=== PATIENT | male | born 1965 | race Caucasian/White ===

== ENCOUNTER 2017-05-18 16:22 | Inpatient (IN) | payer OTHER, MEDICAID ==
[~2017-05-18] VITALS: Ht 188 cm; Wt 125.2 kg
[2017-05-18 16:30] VITALS: Ht 188 cm; Wt 125.2 kg
[2017-05-18 17:13] LABS: BASOPHIL % 0.4 % (0-2); PLATELET COUNT 287 x10^3mcL (130-400); RED CELL DISTRIBUTION WIDTH 13.7 % (11.5-14.5)
[2017-05-18 17:17] LABS: CALCIUM 8.7 mg/dL (8.5-10.1); CARBON DIOXIDE 31.9 mmol/L (21-32); CHLORIDE SERUM 102 mmol/L (98-107); CREATININE SERUM 0.9 mg/dL (0.7-1.3); GFR1 > 60 mL/min; GLUCOSE SERUM 91 mg/dL (74-106); POTASSIUM SERUM 4.1 mmol/L (3.5-5.1); SODIUM SERUM 140 mmol/L (136-145)
[2017-05-18 17:34] LABS: ALBUMIN 3.7 g/dL (3.4-5.0); ALKALINE PHOSPHATASE 70 U/L (46-116); ALT/SGPT 23 U/L (16-63); AST/SGOT 14 U/L (15-37); BILIRUBIN TOTAL 0.33 mg/dL (0.20-1.00); TOTAL PROTEIN, SERUM 7.8 g/dL (6.4-8.2)
[2017-05-18 18:07] LABS: AMPHETAMINE QUAL UR NONE DETECTED (NEG <=1000)
[2017-05-18] MEDS ORDERED: GOOD SENSE OMEP20 MG PO (18:14)
[2017-05-18] MEDS ORDERED: BENZTROPINE MESY1 MG PO (18:14)
[2017-05-18] MEDS ORDERED: ZESTRIL5 MG PO (18:14)
[2017-05-18] MEDS ORDERED: DIVALPROEX SOD500 M3 PO (18:15)
[2017-05-18] MEDS ORDERED: HALDOL DECA100 MG/ML INJ (18:15)
[2017-05-18] MEDS ORDERED: OLANZAPINE5 M2 PO (18:15)
[2017-05-18] MEDS ORDERED: MIRTAZAPINE15 M2 PO (18:15)
[2017-05-18 19:13] VITALS: BP 149/97
[2017-05-18 19:25] LABS: PHOSPHOROUS 3.8 mg/dL (2.5-4.9)
[2017-05-18 19:26] LABS: CHOLESTEROL/HDL RATIO 6.3
[2017-05-18 19:34] LABS: T3 TOTAL 1.1 ng/mL
[2017-05-18 19:57] LABS: FREE T4 0.75 ng/dL (0.76-1.46)
[2017-05-18 19:59] LABS: FREE THYROXINE INDEX 1.6 ug/dL (1.4-4.5); T4(THYROXINE) 4.1 ug/dL (4.7-13.3)
[2017-05-18] MEDS ORDERED: HALOPERIDOL5 MG PO (21:21)
[2017-05-18] MEDS ORDERED: BUS5 PO (21:24)
[2017-05-18] MEDS ORDERED: VITAMIN D32000 I2 PO (21:25)
[2017-05-18] MEDS ORDERED: RISPERIDONE1 MG PO (21:26)
[2017-05-18 22:09] VITALS: BP 136/89
[2017-05-19] VITALS (8 sets, daily range): BP systolic 117–158; BP diastolic 60–100
[2017-05-20] MEDS ORDERED: GOOD SENSE ASPI81 M3 PO (05:43)
[2017-05-20] MEDS ORDERED: LIPI10 PO (05:44)
[2017-05-20 06:10] VITALS: BP 140/84
[2017-05-20 06:27] LABS: BASOPHIL % 0.4 % (0-2); PLATELET COUNT 272 x10^3mcL (130-400); RED CELL DISTRIBUTION WIDTH 13.4 % (11.5-14.5)
[2017-05-20 06:54] LABS: CALCIUM 8.7 mg/dL (8.5-10.1); CARBON DIOXIDE 31.7 mmol/L (21-32); CHLORIDE SERUM 102 mmol/L (98-107); CREATININE SERUM 0.8 mg/dL (0.7-1.3); GFR1 > 60 mL/min; GLUCOSE SERUM 87 mg/dL (74-106); POTASSIUM SERUM 4.5 mmol/L (3.5-5.1); SODIUM SERUM 140 mmol/L (136-145)
[2017-05-20 09:20] VITALS: BP 148/86
[2017-05-20 13:23] VITALS: BP 145/99
== END 2017-05-20 17:30 | DRG 880 ==
LOC: ED 16:22 → DU 18:11
PROVIDERS: Emergency Medicine; Family Medicine
DX: F41.9 Anxiety disorder, unspecified (principal); R07.89 Other chest pain; I16.0 Hypertensive urgency; I10 Essential (primary) hypertension; F20.9 Schizophrenia, unspecified; K21.9 Gastro-esophageal reflux disease without esophagitis; J45.909 Unspecified asthma, uncomplicated; R25.1 Tremor, unspecified; E78.5 Hyperlipidemia, unspecified; E03.9 Hypothyroidism, unspecified; F17.210 Nicotine dependence, cigarettes, uncomplicated; E66.9 Obesity, unspecified; Z68.35 Body mass index [BMI] 35.0-35.9, adult
CPT/HCPCS: 82962; 83880; 84439; 99406; J1885; J7030